=== PATIENT | female | born 1990 | race American Indian/Alaskan Native ===

== ENCOUNTER 2021-10-19 04:41 | Emergency (ER) | payer SELFPAY ==
--- NOTE | 2021-10-19 09:20 | Emergency Department Report ---
- General Chief Complaint: Upper Respiratory Infection Stated Complaint: BRUCE Time Seen by Provider: 10/19/21 08:20 Source: patient Mode of arrival: Ambulatory Limitations: No Limitations - History of Present Illness Initial Comments: 31-year-old obese female with a past medical history of anxiety and depression, and history of suicidal attempt in the past presents to the ER today with complaints of flulike/Covid-like symptoms. Patient states that symptoms started around Le. She reports intermittent diaphoresis, chills, severe dry cough with posttussive emesis, substernal chest pain which is worse with deep breaths and cough, decreased appetite and shortness of breath. She states that she did have body aches but this has since resolved. She denies any fever. She states that she was around a family member who was diagnosed positive for COVID- 19. She states that she did get a rapid test done a couple days ago but she has not gotten the results of her tests as yet. She has not taken a COVID-19 vaccine. Patient states that couple years ago she was diagnosed 1 time with asthma, but she states that she never picked up the albuterol prescription that she was prescribed. She states that when she was admitted in 2019 for suicidal attempt, she was told that she was diabetic, she was prescribed a glucometer but she was not given any medication and she never followed up with the primary care doctor to have her blood sugar monitored. She denies any recent travel. She denies any known history of heart disease, PE or DVT. She denies tobacco use or any illicit drug use. She denies alcohol abuse. MD Complaint: cough -: days(s) (10/11/21) - Related Data Previous Rx's Medication Instructions Recorded Last Taken Type Albuterol Mdi (or & Nicu Only) 2 puff IH QID PRN #8.5 gram 10/19/21 Unknown Rx [ProAir HFA Inhaler] Azithromycin [Zithromax Z-ZE] 250 mg PO DAILY #1 pack 10/19/21 Unknown Rx Promethazine /Codeine 5 ml PO Q6H PRN #120 ml 10/19/21 Unknown Rx [Phenergan/Codeine 6.25-10 mg/5 ml] metFORMIN [Glucophage] 500 mg PO QDAY #30 tab 10/19/21 Unknown Rx Allergies Allergy/AdvReac Type Severity Reaction Status Date / Time No Known Allergies Allergy Unverified 10/19/21 09:40 ED Review of Systems ROS: Stated complaint: BRUCE Other details as noted in HPI Comment: All other systems reviewed and negative Constitutional: chills ENT: denies: throat pain, congestion Respiratory: cough, shortness of breath. denies: wheezing Cardiovascular: chest pain. denies: palpitations Gastrointestinal: vomiting (post tussive ). denies: abdominal pain, nausea, diarrhea, constipation, hematemesis, hematochezia Genitourinary: denies: urgency, dysuria, frequency, hematuria, discharge, abnormal menses, dyspareunia Musculoskeletal: denies: back pain, joint swelling, arthralgia Skin: denies: rash, lesions, change in color, change in hair/nails, pruritus Neurological: denies: headache, weakness, numbness, paresthesias, confusion, abnormal gait, vertigo Psychiatric: denies: anxiety, depression, auditory hallucinations, visual hallucinations, homicidal thoughts, suicidal thoughts Hematological/Lymphatic: denies: easy bleeding, easy bruising, swollen glands ED Past Medical Hx - Past Medical History Previous Medical History?: No - Surgical History Past Surgical History?: No - Medications Home Medications: Home Medications Medication Instructions Recorded Confirmed Last Taken Type Albuterol Mdi (or & Nicu Only) 2 puff IH QID PRN #8.5 gram 10/19/21 Unknown Rx [ProAir HFA Inhaler] Azithromycin [Zithromax Z-ZE] 250 mg PO DAILY #1 pack 10/19/21 Unknown Rx Promethazine /Codeine 5 ml PO Q6H PRN #120 ml 10/19/21 Unknown Rx [Phenergan/Codeine 6.25-10 mg/5 ml] metFORMIN [Glucophage] 500 mg PO QDAY #30 tab 10/19/21 Unknown Rx ED Physical Exam - General Limitations: No Limitations General appearance: alert, obese, other (patient with severe intermittent cough during exam ) - Head Head exam: Present: atraumatic, normocephalic, normal inspection - Eye Eye exam: Present: normal appearance, PERRL, EOMI Pupils: Present: normal accommodation - Neck Neck exam: Present: normal inspection, full ROM. Absent: meningismus - Respiratory Respiratory exam: Present: normal lung sounds bilaterally, wheezes (right lower lung pettit). Absent: respiratory distress, rales, rhonchi - Cardiovascular Cardiovascular Exam: Present: normal rhythm, tachycardia, normal heart sounds - GI/Abdominal GI/Abdominal exam: Present: soft. Absent: distended, tenderness, guarding, rebound - Neurological Exam Neurological exam: Present: alert, oriented X3, CN II-XII intact, normal gait - Psychiatric Psychiatric exam: Present: normal affect, normal mood - Skin Skin exam: Present: intact ED Course Vital Signs 10/19/21 10/19/21 10/19/21 04:44 10:26 15:10 Temperature 98.3 F 100.4 F H 98.2 F Pulse Rate 124 H 118 H 102 H Respiratory 18 20 22 Rate Blood Pressure 180/95 Blood Pressure 133/83 149/89 [Left] O2 Sat by Pulse 96 97 97 Oximetry ED Medical Decision Making - Lab Data Result diagrams: 10/19/21 09:43 10/19/21 09:43 - EKG Data EKG shows normal: sinus rhythm Rate: tachycardia (112) - Radiology Data Radiology results: report reviewed Patient: LIBAN CASTILLO MR#: [id number] : 1990 Acct:[id number] Age/Sex: 31 / F ADM Date: 10/19/21 Loc: ED Attending Dr: Ordering Physician: GAGANDEEP COX Date of Service: 10/19/21 Procedure(s): XR chest routine 2V Accession Number(s): [id number] cc: GAGANDEEP COX Fluoro Time In Minutes: CHEST 2 VIEWS INDICATION / CLINICAL INFORMATION: severe cough. COMPARISON: None available. FINDINGS: SUPPORT DEVICES: None. HEART / MEDIASTINUM: No significant abnormality. LUNGS / PLEURA: Diffuse opacities in bilateral lungs No pneumothorax. ADDITIONAL FINDINGS: No significant additional findings. IMPRESSION: Diffuse bilateral pulmonary opacities Signer Name: Brock Zhang MD Signed: 10/19/2021 9:48 AM Workstation Name: [id number] Transcribed By: JOSE FRANCISCO Dictated By: FLAVIO ZHANG MD Electronically Authenticated By: FLAVIO ZHANG MD Signed Date/Time: 10/19/21947 DD/ 7 Patient: LIBAN CASTILLO MR#: [id number] : 1990 Acct:[id number] Age/Sex: 31 / F ADM Date: 10/19/21 Loc: ED Attending Dr: Ordering Physician: GAGANDEEP COX Date of Service: 10/19/21 Procedure(s): CT angio chest Accession Number(s): [id number] cc: GAGANDEEP COX CTA CHEST WITH IV CONTRAST INDICATION: SOB/ELevated D-Dimer. TECHNIQUE: Axial CT images were obtained through the chest after injection of IV contrast. 3 plane MIP reconstructions were produced. All CT scans at this location are performed using CT dose reduction for ALARA by means of automated exposure control. COMPARISON: None available. FINDINGS: Pulmonary Arteries: No pulmonary emboli. Lungs: There are diffuse patchy bilateral opacities. Trachea and Bronchi: No significant abnormality. Heart and Pericardium: No significant abnormality. Vasculature: No significant abnormality. Lymphatics: No lymphadenopathy. Additional Findings: None. Upper Abdomen: Hepatomegaly with hepatic steatosis. Skeletal Structures: No acute findings or aggressive bone lesions. IMPRESSION: 1. No CT evidence for pulmonary embolism. 2. Diffuse patchy bilateral groundglass opacities suggesting multifocal pneumonia. 3. Hepatomegaly with hepatic steatosis. Signer Name: Rafa Arguello MD Signed: 10/19/2021 2:01 PM Workstation Name: [id number] Transcribed By: PAKO Dictated By: Rafa Arguello MD Electronically Authenticated By: Rafa Arguello MD Signed Date/Time: 10/19/21 1401 DD/ 1400 TD/TT: TD/TT: - Medical Decision Making All labs including chest x-ray reviewed. Work-up today concern for COVID-19 infection with associated pneumonia. Patient currently sitting comfortably in the room. She appears to be feeling better after meds. Coughing has improved. She is currently not toxic, she is not ill-appearing, and she is not in any severe respiratory distress. She is currently neurologically intact. She appears to be hemodynamically stable. Repeat vitals shows improvement. patient was ambulated by hi, and she maintained an O2 sat on room air of 98% and a heart rate maintained at 111. Patient expressed no difficulty breathing or any symptoms at the time of ambulation. Discussed all results with patient. Patient blood sugar was also 257, patient reports remote history of diabetes, but she states she was never started on medication. Patient will be started on Metformin 500 mg today, she was instructed to follow-up with her primary care doctor for continued management of her diabetes and to continue monitoring her sugar at home. Discussed treatment plan with patient. Recommend that she purchase a pulse oximeter to continue to monitor O2 status and also to monitor to monitor for fever. Recommend close follow-up with her PCP, but she understands to return to the ER if her symptoms worsens in any way. Critical care attestation.: If time is entered above; I have spent that time in minutes in the direct care of this critically ill patient, excluding procedure time. ED Disposition Clinical Impression: Pneumonia, Suspected COVID-19 virus infection Disposition: HOME / SELF CARE / HOMELESS Is pt being admited?: No Does the pt Need Aspirin: No Condition: Stable Instructions: COVID-19: How to Protect Yourself and Others - CDC, Community- Acquired Pneumonia, Adult, [id number], Prevent the Spread of COVID-19 if You Are Sick - CDC, Bacterial Pneumonia (ED) Additional Instructions: I recommend that you take the antibiotics as prescribed, use albuterol inhaler to help with any shortness of breath, wheezing or coughing spells. Take the promethazine with codeine to help with cough. I do recommend that you call the clinic that you got your COVID-19 test from to find out which results were. You should continue to quarantine at home, and wear a mask to protect family members and others. I recommend drinking lots of fluids. Continue to rest. Monitor your temperature at home, take Tylenol and/or ibuprofen if you develop fever of 100.5 or higher. I also recommend that you purchase a pulse oximeter from [id number] to continue monitoring your oxygen status and if you notice that your oxygen has been persistently tested 93/92% with worsening symptoms return immediately to the ER. Your blood sugar was also noted to be elevated during stay, you will be started on metformin 500 milligrams to take once a day (start taking 10/21/21 due to you getting IV dye today), I do recommend that you follow- up with your primary care doctor to continue monitoring your diabetes, and also continue checking your diabetes at home. Follow-up closely with your PCP this week. Prescriptions: metFORMIN [Glucophage] 500 mg PO QDAY #30 tab Promethazine /Codeine [Phenergan/Codeine 6.25-10 mg/5 ml] 5 ml PO Q6H PRN #120 ml PRN Reason: cough Albuterol Mdi (or & Nicu Only) [ProAir HFA Inhaler] 2 puff IH QID PRN #8.5 gram PRN Reason: Shortness Of Breath Azithromycin [Zithromax Z-ZE] 250 mg PO DAILY #1 pack Referrals: [facility] [Provider Group] - 3-5 Days Time of Disposition: 14:24
[2021-10-19] MEDS ORDERED: PROMETHAZINE/CODEINE 6.25-10 MG ORAL LIQD 5 ML PO NR (09:24)
[2021-10-19] MEDS ORDERED: dexAMETHasone 20 MG/5 ML VIAL IV ONE (09:25)
--- NOTE | 2021-10-19 09:52 | XRay Report ---
CHEST 2 VIEWS INDICATION / CLINICAL INFORMATION: severe cough. COMPARISON: None available. FINDINGS: SUPPORT DEVICES: None. HEART / MEDIASTINUM: No significant abnormality. LUNGS / PLEURA: Diffuse opacities in bilateral lungs No pneumothorax. ADDITIONAL FINDINGS: No significant additional findings. IMPRESSION: Diffuse bilateral pulmonary opacities Signer Name: Brock Zhang MD Signed: 10/19/2021 9:48 AM Workstation Name: [id number]
[2021-10-19] MEDS ORDERED: dexAMETHasone 20 MG/5 ML VIAL IV NR (10:00)
[2021-10-19] MEDS ORDERED: PROMETHAZINE/CODEINE 6.25-10 MG ORAL LIQD 5 ML PO STA (10:20)
[2021-10-19 10:46] LABS: Basophils % (Auto) 0.2 % (0.0-1.8); Eosinophils % (Auto) 0.1 % (0.0-4.3); Lymphocytes # (Auto) 1.7 K/mm3 (1.2-5.4); Mean Corpuscular HGB Conc 30 % (30-34); Mean Corpuscular Volume 83 fl (79-97); Monocytes # (Auto) 0.5 K/mm3 (0.0-0.8); Monocytes % (Auto) 8.8 % (0.0-7.3); Platelet Count 276 K/mm3 (140-440); Red Blood Count 4.38 M/mm3 (3.65-5.03); Red Cell Distribution Width 18.3 % (13.2-15.2)
[2021-10-19] MEDS ORDERED: ACETAMINOPHEN 325 MG TAB PO ONE (10:47)
[2021-10-19] MEDS ORDERED: IBUPROFEN 600 MG TAB PO ONE (10:47)
[2021-10-19 10:48] LABS: Hematocrit 36.4 % (30.3-42.9); Hemoglobin 10.9 gm/dl (10.1-14.3)
[2021-10-19 11:12] LABS: Alanine Aminotransferase 23 units/L (7-56); Albumin 4.4 g/dL (3.9-5); BUN/Creatinine Ratio 8; Blood Urea Nitrogen 6 mg/dL (7-17); Calcium 9.1 mg/dL (8.4-10.2); Hemolysis Index 7
--- NOTE | 2021-10-19 14:05 | Cat Scan Report ---
CTA CHEST WITH IV CONTRAST INDICATION: SOB/ELevated D-Dimer. TECHNIQUE: Axial CT images were obtained through the chest after injection of IV contrast. 3 plane MIP reconstru ctions were produced. All CT scans at this location are performed using CT dose reduction for ALARA b y means of automated exposure control. COMPARISON: None available. FINDINGS: Pulmonary Arteries: No pulmonary emboli. Lungs: There are diffuse patchy bilateral opacities. Trachea and Bronchi: No significant abnormality. Heart and Pericardium: No significant abnormality. Vasculature: No significant abnormality. Lymphatics: No lymphadenopathy. Additional Findings: None. Upper Abdomen: Hepatomegaly with hepatic steatosis. Skeletal Structures: No acute findings or aggressive bone lesions. IMPRESSION: 1. No CT evidence for pulmonary embolism. 2. Diffuse patchy bilateral groundglass opacities suggesting multifocal pneumonia. 3. Hepatomegaly with hepatic steatosis. Signer Name: Rafa Arguello MD Signed: 10/19/2021 2:01 PM Workstation Name: [id number]
[2021-10-19 15:11] VITALS: BP 149/89
--- NOTE | 2021-10-20 08:49 | Electrocardiograph Report ---
[facility] Test Date: 2021-10-19 Test Time: 09:52:00 Pat Name: LIBAN CASTILLO Department: Room: Gender: F [employer]inder: RENNY : 1990 Requested By: GAGANDEEP COX Order Number: [id number] Reading MD: Raphael Beach Measurements Intervals [place] Rate: 112 P: 44 FL: 114 QRS: 50 QRSD: 78 T: -72 QT: 317 QTc: 433 Interpretive Statements Sinus tachycardia Nonspecific T abnormalities, diffuse leads No previous ECG available for comparison Electronically Signed On 10-20-2021 8:49:23 EST by Raphael Beach
== END 2021-10-19 15:11 | disposition home or self-care (01) ==
LOC: ED 04:41
DX: J18.9 Pneumonia, unspecified organism (principal); Z20.822 Contact with and (suspected) exposure to COVID-19; Z79.84 Long term (current) use of oral hypoglycemic drugs; Z79.899 Other long term (current) drug therapy
CPT/HCPCS: 36415; 71046; 71275; 80053; 84703; 85025; 85379; 93005; 96374; 99284; J1100; Q9967